=== PATIENT | male | born 1960 | race Caucasian/White ===

== ENCOUNTER → 2021-01-03 | Outpatient (CLI) | payer OTHER ==
--- NOTE | 2021-01-03 13:57 | RAD ---
EXAM: Lumbar spine, 2 views. HISTORY: Pain. COMPARISON: None. FINDINGS: 2 views of the lumbar spine are obtained. There is mild lumbar levoscoliosis. There is grad e 1 anterolisthesis with suspected pars defects at L5-S1. There aren't incidental and can gently nonf used posterior elements at L5. There is chronic appearing mild decreased vertebral body height at L5. There is facet arthropathy at the lower lumbar levels. IMPRESSION: 1. Grade 1 anterolisthesis with suspected pars defects at L5-S1. 2. Mild lumbar scoliosis. 3. Chronic appearing mild decreased vertebral body height at L5. Electronically signed by: Shoshana Garcia MD (01/03/2021 1:54 PM) [id number]
== END ==
LOC: RAD 12:19
PROVIDERS: ATTEND Family Medicine
DX: M47.816 Spondylosis without myelopathy or radiculopathy, lumbar region (principal); M41.86 Other forms of scoliosis, lumbar region; Z02.71 Encounter for disability determination
CPT/HCPCS: 72100